=== PATIENT | female | born 1995 | race Caucasian/White ===

== ENCOUNTER 2017-04-17 11:48 | Inpatient (IN) | payer OTHER ==
[~2017-04-17] VITALS: Ht 165.1 cm; Wt 73.7 kg
[2017-04-17] MEDS ORDERED: SODIUM CHLORIDE 0.9% 1,000 ML IV ONE ×2 (11:58)
[2017-04-17] MEDS ORDERED: SODIUM CHLORIDE 0.9% 2,000 ML IV ONE (12:00)
[2017-04-17] MEDS ORDERED: LORazepam 2MG/ML-1ML VIAL IV ONE (12:00)
[2017-04-17] MEDS ORDERED: MAGNESIUM SULFATE 40MG/ML 1,000 ML IV SCH (12:15)
[2017-04-17 12:21] LABS: Basophils # (auto) 0 uL; Basophils % (auto) 0.3 % (0.0-2.0); Eosinophils # (auto) 0.2 uL; Eosinophils % (auto) 1.9 % (0.0-7.0); Hematocrit 29.2 % (36.0-46.0); Hemoglobin 9.5 g/dL (12.2-16.2); Lymphocytes # (auto) 2.5 uL; Lymphocytes % (auto) 21.8 % (10.0-50.0); Mean Corpuscular Hemoglobin 29.1 pg (28.0-32.0); Mean Corpuscular Hgb Conc. 32.4 g/dL (32.0-36.0); Mean Corpuscular Volume 89.9 fL (80.0-100.0); Monocytes # (auto) 0.9 uL; Monocytes % (auto) 7.9 % (0.0-12.0); Neutrophils # (auto) 7.8 uL; Neutrophils % (auto) 68.1 % (37.0-80.0); Nucleated Red Blood Cells % 0.1 %; Platelet Count (auto) 285 10^3/uL (140-450); Red Cell Distribution Width 13.6 % (11.8-14.3); White Blood Cell 11.5 10^3/uL (4.4-10.8)
[2017-04-17 12:30] LABS: INR 0.87 (0.9-1.15); Partial Thromboplastin Time 21.3 sec (22.64-33.71); Prothrombin Time 9.5 sec (9.37-12.3)
[2017-04-17 12:40] LABS: Albumin 2.2 g/dL (3.4-5.0); BUN/Creatinine Ratio 7.8; Bilirubin, Total 0.3 mg/dL (0.2-1.0); Calcium 8.7 mg/dL (8.5-10.1); Potassium 3.9 mmol/L (3.5-5.1)
[2017-04-17] MEDS: D5W/SOD CHL 0.45% 1,000 ML IV SCH (12:45)
[2017-04-17] MEDS ORDERED: METHYLDOPA 250 MG TAB PO ONE (12:45)
[2017-04-17 12:59] LABS: Urine Bilirubin Negative (Negative); Urine Blood TRACE /uL (Negative); Urine Color Yellow (Yellow); Urine Glucose Normal (Normal); Urine Ketone TRACE (Negative); Urine Nitrite Negative (Negative); Urine RBC <1 /hpf (0 - 4); Urine Urobilinogen Normal (Negative); Urine pH 6.5 (5.0-8.0)
[2017-04-17] MEDS ORDERED: MET250T PO (13:28)
[2017-04-17] MEDS ORDERED: LABE100T PO (13:29)
[2017-04-17] MEDS: LABETALOL HCL 200 MG TAB PO SCH ×2 (13:41→22:28)
[2017-04-17] MEDS ORDERED: METOPROLOL TARTRATE 1MG/1ML-5ML VIAL IV ONE (13:45)
[2017-04-17] MEDS ORDERED: LORazepam 2MG/ML-1ML VIAL IV PRN (16:45)
[2017-04-17] MEDS: METOPROLOL TARTRATE 1MG/1ML-5ML VIAL IV PRN (16:57)
[2017-04-17] MEDS ORDERED: METHYLDOPA 250 MG TAB PO SCH (18:00)
[2017-04-17] MEDS: METHYLDOPA 250 MG TAB PO SCH ×2 (18:19→22:00)
[2017-04-17] MEDS: MAGNESIUM SULFATE 40MG/ML 1,000 ML IV SCH (19:09)
[2017-04-17] MEDS ORDERED: ACETAMINOPHEN 500 MG TAB PO ONE (20:29)
[2017-04-17] MEDS: ACETAMINOPHEN 500 MG TAB PO PRN (21:15)
[2017-04-17] MEDS ORDERED: METHYLDOPA 250 MG TAB ONE (22:26)
[2017-04-17 23:32] VITALS: BP 150/94
[2017-04-18] VITALS (18 sets, daily range): BP systolic 113–165; BP diastolic 67–110
[2017-04-18] MEDS: D5W/SOD CHL 0.45% 1,000 ML IV SCH ×2 (01:28→15:00)
[2017-04-18] MEDS: METHYLDOPA 250 MG TAB PO SCH ×4 (06:37→22:27)
[2017-04-18] MEDS: LABETALOL HCL 200 MG TAB PO SCH ×3 (06:37→22:28)
[2017-04-18 12:17] LABS: Basophils # (auto) 0 uL; Basophils % (auto) 0.4 % (0.0-2.0); Eosinophils # (auto) 0.2 uL; Eosinophils % (auto) 1.6 % (0.0-7.0); Hemoglobin 10.1 g/dL (12.2-16.2); Lymphocytes # (auto) 1.7 uL; Mean Corpuscular Hemoglobin 28.5 pg (28.0-32.0); Mean Corpuscular Hgb Conc. 32.4 g/dL (32.0-36.0); Mean Corpuscular Volume 87.8 fL (80.0-100.0); Mean Platelet Volume 7.6 fL (6.9-10.8); Monocytes # (auto) 0.8 uL; Monocytes % (auto) 7.2 % (0.0-12.0); Neutrophils # (auto) 8.4 uL; Neutrophils % (auto) 75.8 % (37.0-80.0); Platelet Count (auto) 296 10^3/uL (140-450); Red Cell Distribution Width 13.6 % (11.8-14.3); White Blood Cell 11.1 10^3/uL (4.4-10.8)
[2017-04-18 12:25] LABS: Albumin 2.2 g/dL (3.4-5.0); BUN/Creatinine Ratio 12.2; Bilirubin, Total 0.3 mg/dL (0.2-1.0); Calcium 7.4 mg/dL (8.5-10.1); Total Protein 6.4 g/dL (6.4-8.2)
[2017-04-18] MEDS: ACETAMINOPHEN 500 MG TAB PO PRN (16:55)
[2017-04-18] MEDS ORDERED: LABETALOL HCL 200 MG TAB PO SCH (22:00)
[2017-04-19] VITALS (19 sets, daily range): BP systolic 130–163; BP diastolic 84–104
[2017-04-19] MEDS: D5W/SOD CHL 0.45% 1,000 ML IV SCH ×3 (04:15→22:34)
[2017-04-19 05:39] LABS: Basophils # (auto) 0 uL; Basophils % (auto) 0.4 % (0.0-2.0); Eosinophils # (auto) 0.2 uL; Hematocrit 29.1 % (36.0-46.0); Hemoglobin 9.8 g/dL (12.2-16.2); Lymphocytes # (auto) 2.6 uL; Lymphocytes % (auto) 27.1 % (10.0-50.0); Mean Corpuscular Hemoglobin 29.7 pg (28.0-32.0); Mean Corpuscular Hgb Conc. 33.8 g/dL (32.0-36.0); Mean Corpuscular Volume 87.8 fL (80.0-100.0); Mean Platelet Volume 7.4 fL (6.9-10.8); Monocytes # (auto) 0.8 uL; Monocytes % (auto) 8.1 % (0.0-12.0); Neutrophils % (auto) 62.4 % (37.0-80.0); Platelet Count (auto) 283 10^3/uL (140-450); Red Cell Distribution Width 13.5 % (11.8-14.3); White Blood Cell 9.6 10^3/uL (4.4-10.8)
[2017-04-19 05:58] LABS: Calcium 7.2 mg/dL (8.5-10.1); Magnesium,Therapeutic 4.7 mg/dL (4.0-7.1); Potassium 3.8 mmol/L (3.5-5.1)
[2017-04-19] MEDS: METHYLDOPA 250 MG TAB PO SCH ×4 (06:19→22:24)
[2017-04-19] MEDS: LABETALOL HCL 200 MG TAB PO SCH ×3 (06:19→21:50)
[2017-04-19] MEDS: MAGNESIUM SULFATE 40MG/ML 1,000 ML IV SCH (08:15)
[2017-04-19] MEDS: IBUPROFEN 600 MG TAB PO PRN ×3 (09:54→22:45)
[2017-04-19] MEDS: METOPROLOL TARTRATE 1MG/1ML-5ML VIAL IV PRN ×2 (16:18→22:12)
[2017-04-20] VITALS (7 sets, daily range): BP systolic 149–179; BP diastolic 91–111
[2017-04-20] MEDS ORDERED: LABETALOL HCL 200 MG TAB PO ONE (02:45)
[2017-04-20] MEDS: LABETALOL HCL 200 MG TAB PO SCH ×4 (06:01→21:34)
[2017-04-20] MEDS: ACETAMINOPHEN 500 MG TAB PO PRN ×2 (06:10→14:42)
[2017-04-20] MEDS: METHYLDOPA 250 MG TAB PO SCH ×4 (07:00→21:34)
[2017-04-20] MEDS: METOPROLOL TARTRATE 1MG/1ML-5ML VIAL IV PRN ×2 (09:56→17:08)
[2017-04-21] MEDS: ACETAMINOPHEN 500 MG TAB PO PRN (03:30)
[2017-04-21 05:00] VITALS: BP 162/93
[2017-04-21] MEDS: LABETALOL HCL 200 MG TAB PO SCH ×2 (05:48→12:41)
[2017-04-21] MEDS: METHYLDOPA 250 MG TAB PO SCH ×2 (06:49→12:40)
[2017-04-21] MEDS: METOPROLOL TARTRATE 1MG/1ML-5ML VIAL IV PRN (08:23)
[2017-04-21 08:34] VITALS: BP 179/102
[2017-04-21 12:43] VITALS: BP 143/86
[2017-04-21 13:30] VITALS: BP 143/86
[2017-04-21 14:35] VITALS: BP 119/58
== END 2017-04-21 13:30 | disposition home or self-care (01) | DRG 776 ==
LOC: EDUNIT# 11:48 → ER 11:48 → TELE 11:49 → DOU IN ICU 22:51 → TELE-WESTW 04-20 06:09
PROVIDERS: ADMIT Specialist; ATTEND Specialist
DX: O99.355 Diseases of the nervous system complicating the puerperium (principal); G93.6 Cerebral edema; I67.83 Posterior reversible encephalopathy syndrome; G40.401 Other generalized epilepsy and epileptic syndromes, not intractable, with status epilepticus; O15.2 Eclampsia complicating the puerperium; F41.9 Anxiety disorder, unspecified; O99.345 Other mental disorders complicating the puerperium; O10.93 Unspecified pre-existing hypertension complicating the puerperium
CPT/HCPCS: 36415; 51702; 70450; 70551; 71010; 80048; 80053; 81001; 82962; 83735; 84484; 85025; 85610; 85730; 87081; 93005; 93017; 96365; 96366; 96375; 96376; 97116; 97163; 97530